=== PATIENT | female | born 1990 | race Caucasian/White ===

== ENCOUNTER 2019-12-12 20:49 | Inpatient (IN) | payer OTHER ==
[~2019-12-12] VITALS: Ht 170.2 cm; Wt 57.2 kg
[2019-12-12] MEDS ORDERED: IV NORMAL SALINE 1000ML BAG 1,000 ML IV SCH (20:59)
[2019-12-12] MEDS ORDERED: ONDANSETRON PF 4 MG/2 ML VIAL. IVP ONE (21:00)
[2019-12-12] MEDS: fentaNYL PF VIAL 100 MCG/2 ML VIAL IV PRN ×3 (21:07→22:54)
[2019-12-12 21:20] LABS: CALCIUM 9.5 mg/dL (8.5-10.1); CREATININE 0.8 mg/dL (0.6-1.0); GFR 84.2; POTASSIUM 4.4 mmol/L (3.5-5.1)
[2019-12-12 21:23] LABS: PROTHROMBIN TIME PATIENT 12.9 SEC (11.7-14.0)
[2019-12-12 21:24] LABS: BASO # 0.1 x10^3/uL (0.0-0.2); BASO % 1 % (0-3); EOS # 0.3 x10^3/uL (0.0-0.7); EOS % 2 % (0-3); HEMATOCRIT 43.5 % (36.0-47.0); HEMOGLOBIN 14.8 g/dL (12.0-15.5); LYMPH # 3.6 x10^3/uL (1.0-4.8); LYMPH % 28 % (24-48); MEAN CORPUSCULAR HEMOGLOBIN 32 pg (25-35); MEAN CORPUSCULAR HGB CONC 34 g/dL (31-37); MEAN CORPUSCULAR VOLUME 94 fL (79-100); MONO # 0.7 x10^3/uL (0.0-1.1); MONO % 6 % (0-9); NEUT # 8.3 x10^3/uL (1.8-7.7); NEUT % 64 % (31-73); PLATELET COUNT 368 x10^3/uL (140-400); PREG TEST PT QUAL NEGATIVE (NEG); RED BLOOD COUNT 4.64 x10^6/uL (3.50-5.40); RED CELL DISTRIBUTION WIDTH 13.4 % (11.5-14.5); WHITE BLOOD COUNT 12.9 x10^3/uL (4.0-11.0)
[2019-12-12 21:26] LABS: ALBUMIN 4.3 g/dL (3.4-5.0); ALBUMIN/GLOBULIN RATIO 1.3 (1.0-1.7); TOTAL BILIRUBIN 0.5 mg/dL (0.2-1.0); TOTAL PROTEIN 7.7 g/dL (6.4-8.2)
[2019-12-12] MEDS ORDERED: CONTRAST GIVEN. MC PRN (21:30)
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
[2019-12-12] MEDS ORDERED: IOHEXOL 300 MG/ML 100ML VIAL. IV ONE (22:00)
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
[2019-12-12] MEDS ORDERED: ONDANSETRON PF 4 MG/2 ML VIAL. IV PRN (23:15)
[2019-12-12] MEDS ORDERED: KETOROLAC 30 MG/ML VIAL. IVP ONE (23:30)
[2019-12-12] MEDS ORDERED: LIDOCAINE 2% VISCOUS 15 ML SOLUTION. SWSW ONE (23:30)
[2019-12-12] MEDS ORDERED: ORPHENADRINE CITRATE 60 MG/2 ML VIAL. IV ONE (23:30)
[2019-12-12] MEDS: MORPHINE SULFATE 4 MG/ML VIAL. IV PRN (23:45)
[2019-12-13] VITALS (7 sets, daily range): BP systolic 90–107; BP diastolic 42–74
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
[2019-12-13] MEDS: MORPHINE SULFATE 4 MG/ML VIAL. IV PRN ×3 (02:45→21:44)
--- NOTE | 2019-12-13 02:49 | NUR ---
Patient still to painful to allow cleansing of scraps, Morphine Slow IVP given for c/o pain. Call light in reach.
[2019-12-13 07:30] LABS: BASO % 0 % (0-3); EOS # 0.2 x10^3/uL (0.0-0.7); EOS % 1 % (0-3); HEMATOCRIT 38.3 % (36.0-47.0); HEMOGLOBIN 12.9 g/dL (12.0-15.5); LYMPH # 2.5 x10^3/uL (1.0-4.8); LYMPH % 16 % (24-48); MEAN CORPUSCULAR HEMOGLOBIN 32 pg (25-35); MEAN CORPUSCULAR HGB CONC 34 g/dL (31-37); MEAN CORPUSCULAR VOLUME 95 fL (79-100); MONO # 1.1 x10^3/uL (0.0-1.1); MONO % 7 % (0-9); NEUT # 11.9 x10^3/uL (1.8-7.7); NEUT % 76 % (31-73); PLATELET COUNT 287 x10^3/uL (140-400); RED BLOOD COUNT 4.05 x10^6/uL (3.50-5.40); RED CELL DISTRIBUTION WIDTH 13.2 % (11.5-14.5); WHITE BLOOD COUNT 15.7 x10^3/uL (4.0-11.0)
[2019-12-13 07:41] LABS: CALCIUM 8.1 mg/dL (8.5-10.1); CREATININE 0.7 mg/dL (0.6-1.0); GFR 98.3; POTASSIUM 3.6 mmol/L (3.5-5.1)
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
--- NOTE | 2019-12-13 11:13 | EKG ---
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
[2019-12-13] MEDS ORDERED: ALBUTEROL SULFATE 2.5 MG/3 ML NEBU. NEB PRN (11:15)
[2019-12-13] MEDS ORDERED: DOCUSATE SODIUM 100 MG CAPSULE. PO PRN (11:15)
[2019-12-13] MEDS ORDERED: LORazepam 0.5 MG TABLET PO PRN (11:15)
[2019-12-13] MEDS ORDERED: 0.9 % SODIUM CHLORIDE 10 ML DISP.SYRIN. IV PRN (11:15)
[2019-12-13] MEDS ORDERED: MAG HYDROX/ALUMINUM HYD/SIMETH 30 ML ORAL.SUSP PO PRN (11:15)
[2019-12-13] MEDS ORDERED: cloNIDine HCL 0.1 MG TABLET PO PRN (11:15)
[2019-12-13] MEDS ORDERED: guaiFENesin ORAL 200 MG/10 ML LIQUID. PO PRN (11:15)
[2019-12-13] MEDS ORDERED: IV NORMAL SALINE 1000ML BAG 1,000 ML IV ONE (11:30)
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
[2019-12-13] MEDS: ACETAMINOPHEN 325 MG TABLET. PO PRN (12:48)
[2019-12-13] MEDS ORDERED: MUPIROCIN 2 % TOPICAL CREAM 30GM TUBE. TP SCH (14:00)
[2019-12-13] MEDS: ENOXAPARIN 40 MG/0.4 ML SYRINGE. SQ SCH (16:08)
[2019-12-13] MEDS: HYDROcodone/APAP 7.5/325MG 1 TAB TABLET PO PRN ×2 (16:09→23:53)
[2019-12-13] MEDS: cefTRIAXone IV Push 1 GM VIAL. IVP SCH (16:21)
[2019-12-13] MEDS: MUPIROCIN 2 % NASAL OINTMENT 22GM TUBE. TP SCH ×2 (16:22→21:44)
[2019-12-13 16:48] LABS: BARBITURATES NEG (NEG); BENZODIAZEPINES NEG (NEG); CANNABINOIDS NEG (NEG); COCAINE NEG (NEG); METHADONE NEG (NEG); OPIATES POS (NEG); PHENCYCLIDINE NEG (NEG)
[2019-12-13 16:49] LABS: AMPHETAMINE/METHAMPHETAMINE NEG (NEG)
[2019-12-14] MEDS ORDERED: KETOROLAC 30 MG/ML VIAL. IVP ONE (02:00)
[2019-12-14 03:00] VITALS: BP 94/46
[2019-12-14] MEDS: MUPIROCIN 2 % NASAL OINTMENT 22GM TUBE. TP SCH ×3 (06:00→20:57)
[2019-12-14] MEDS: HYDROcodone/APAP 7.5/325MG 1 TAB TABLET PO PRN ×2 (06:07→12:09)
[2019-12-14 07:59] VITALS: BP 119/59
[2019-12-14] MEDS ORDERED: KETOROLAC 15 MG/ML VIAL. IVP PRN (08:00)
[2019-12-14] MEDS: ONDANSETRON PF 4 MG/2 ML VIAL. IV PRN (08:15)
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
[2019-12-14 11:21] VITALS: BP 98/51
[2019-12-14] MEDS: ENOXAPARIN 40 MG/0.4 ML SYRINGE. SQ SCH (11:37)
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
[2019-12-14] MEDS: ACETAMINOPHEN 325 MG TABLET. PO PRN (13:43)
[2019-12-14] MEDS: cefTRIAXone IV Push 1 GM VIAL. IVP SCH (13:44)
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
[2019-12-14 15:59] VITALS: BP 108/61
[2019-12-14] MEDS ORDERED: oxyCODONE/APAP 5/325 1 TAB TABLET PO PRN (16:00)
[2019-12-14] MEDS: KETOROLAC 15 MG/ML VIAL. IVP SCH (17:48)
[2019-12-14 19:00] VITALS: BP 109/53
[2019-12-14] MEDS: LACTOBACILLUS RHAMNOSUS GG 1 CAPSULE. PO SCH (20:55)
[2019-12-14] MEDS: oxyCODONE/APAP 5/325 1 TAB TABLET PO PRN (20:56)
[2019-12-14 23:00] VITALS: BP 102/51
[2019-12-15] MEDS: KETOROLAC 15 MG/ML VIAL. IVP SCH ×4 (00:11→17:30)
[2019-12-15 03:00] VITALS: BP 100/54
[2019-12-15] MEDS: MUPIROCIN 2 % NASAL OINTMENT 22GM TUBE. TP SCH ×3 (05:57→22:00)
[2019-12-15 07:18] VITALS: BP 98/54
[2019-12-15] MEDS: LACTOBACILLUS RHAMNOSUS GG 1 CAPSULE. PO SCH ×2 (09:12→22:28)
[2019-12-15] MEDS: oxyCODONE/APAP 5/325 1 TAB TABLET PO PRN (09:14)
[2019-12-15] MEDS: ONDANSETRON PF 4 MG/2 ML VIAL. IV PRN ×2 (09:18→13:23)
[2019-12-15 10:45] VITALS: BP 99/44
[2019-12-15] MEDS: ENOXAPARIN 40 MG/0.4 ML SYRINGE. SQ SCH (11:42)
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
[2019-12-15 12:30] LABS: BASO % 0 % (0-3); EOS # 0.1 x10^3/uL (0.0-0.7); EOS % 2 % (0-3); HEMATOCRIT 36.1 % (36.0-47.0); HEMOGLOBIN 12.6 g/dL (12.0-15.5); LYMPH # 1.6 x10^3/uL (1.0-4.8); LYMPH % 23 % (24-48); MEAN CORPUSCULAR HEMOGLOBIN 33 pg (25-35); MEAN CORPUSCULAR HGB CONC 35 g/dL (31-37); MEAN CORPUSCULAR VOLUME 94 fL (79-100); MONO # 0.4 x10^3/uL (0.0-1.1); MONO % 6 % (0-9); NEUT # 4.7 x10^3/uL (1.8-7.7); NEUT % 69 % (31-73); PLATELET COUNT 285 x10^3/uL (140-400); RED BLOOD COUNT 3.85 x10^6/uL (3.50-5.40); RED CELL DISTRIBUTION WIDTH 12.8 % (11.5-14.5); WHITE BLOOD COUNT 6.8 x10^3/uL (4.0-11.0)
[2019-12-15] MEDS: ACETAMINOPHEN 325 MG TABLET. PO PRN (13:23)
[2019-12-15] MEDS: cefTRIAXone IV Push 1 GM VIAL. IVP SCH (14:07)
[2019-12-15 14:28] VITALS: BP 90/51
[2019-12-15 19:00] VITALS: BP 100/56
[2019-12-15 23:00] VITALS: BP 122/76
[2019-12-16] MEDS: KETOROLAC 15 MG/ML VIAL. IVP SCH ×2 (00:46→06:57)
--- NOTE | 2019-12-16 03:01 | NUR ---
Pt. refused 0300 vitals.
[2019-12-16] MEDS: MUPIROCIN 2 % NASAL OINTMENT 22GM TUBE. TP SCH ×2 (06:57→13:40)
[2019-12-16 07:00] VITALS: BP 103/54
[2019-12-16] MEDS ORDERED: KETOROLAC 15 MG/ML VIAL. IVP ONE (07:45)
[2019-12-16] MEDS ORDERED: KETOROLAC 30 MG/ML VIAL. IVP ONE (07:45)
[2019-12-16] MEDS: LACTOBACILLUS RHAMNOSUS GG 1 CAPSULE. PO SCH (08:06)
[2019-12-16 11:00] VITALS: BP 105/60
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
[2019-12-16] MEDS: ENOXAPARIN 40 MG/0.4 ML SYRINGE. SQ SCH (11:16)
--- NOTE | 2019-12-16 11:54 | NUR ---
Patient refused lovenox. Education completed on why it is ordered at this time. States she does not want it.
[2019-12-16] MEDS ORDERED: KETOROLAC 30 MG/ML VIAL. IVP SCH (12:00)
[2019-12-16] MEDS: cefTRIAXone IV Push 1 GM VIAL. IVP SCH (13:35)
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
[2019-12-16] MEDS ORDERED: LACT1CAP19 PO (14:56)
[2019-12-16] MEDS ORDERED: DOCU-153 PO (14:56)
[2019-12-16] MEDS ORDERED: MUPI22OI2 TP (14:56)
[2019-12-16] MEDS ORDERED: ACET325T9 PO (14:56)
[2019-12-16] MEDS ORDERED: CEPH-264 PO (14:56)
[2019-12-16] MEDS ORDERED: IBUP-1007 PO (14:57)
[2019-12-16 15:00] VITALS: BP 113/63
--- NOTE | 2019-12-16 15:00 | DISCH ---
DISCHARGE INSTRUCTIONS Condition on Discharge Condition on Discharge: Stable Activity After Discharge Activity Instructions for Disc: Activity as tolerated Lifting Instructions after Dis: No heavy lifting, No pulling or pushing Driving Instructions after Dis: Do not drive Diet after Discharge Diet after Discharge: Regular Wound Incision Care Wound/Incision Care: Change dressing Checks after Discharge Checks after discharge: Check blood press - daily Contacting the after DC Call your doctor for: If your condition worsens Warfarin Follow-Up Warfarin Follow UP: see pcp soon for evaluation BIPIN WEI MD December 16, 2019 15:00
--- NOTE | 2019-12-16 15:48 | NUR ---
SS following for discharge planning. SS reviewed pt chart and discussed with pt RN. Pt is from home and is currently on room air. PT recommended home. Discharge order on the chart for home with self care.
--- NOTE | 2019-12-16 19:13 | NUR ---
Patient left around 1845. Discharge education completed by this nurse. Medications sent to [facility] in [facility] per Dr Lu. Wound care dressing instructions given to the patient prior to dismissal and changed by wound care team prior. No concerns at discharge.
== END 2019-12-16 18:50 | disposition home or self-care (01) | DRG 605 ==
LOC: ER 20:49 → 4 NORTH 12-13 00:30 → OBSVTOIN 12-13 00:30
PROVIDERS: ADMIT Internal Medicine; ATTEND Internal Medicine
DX: S80.11XA Contusion of right lower leg, initial encounter (principal); D72.829 Elevated white blood cell count, unspecified; V28.9XXA Unspecified motorcycle rider injured in noncollision transport accident in traffic accident, initial encounter; Y92.410 Unspecified street and highway as the place of occurrence of the external cause
CPT/HCPCS: 36415; 70450; 71045; 71260; 72125; 73562; 73590; 73630; 74177; 80048; 80053; 80307; 82550; 84703; 85025; 85610; 85730; 86850; 86900; 86901; 93005; 96361; 96374; 96375; 96376; 99285; G0480; J0696; J1650; J1885; J2270; J2360; J2405; J3010; J7030; Q9967; G0378